=== PATIENT | male | born 1970 | race Caucasian/White ===

== ENCOUNTER 2017-12-27 11:01 | Emergency (ER) | payer OTHER ==
[2017-12-27] MEDS ORDERED: Clindamycin CAP* 150 MG PO ONE (12:16)
[2017-12-27] MEDS ORDERED: Ibuprofen TAB* 600 MG PO ONE (12:16)
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
[2017-12-27 12:41] VITALS: BP 138/90
== END 2017-12-27 12:39 | disposition home or self-care (01) ==
LOC: ED 11:01
DX: K08.89 Other specified disorders of teeth and supporting structures (principal); F17.200 Nicotine dependence, unspecified, uncomplicated
CPT/HCPCS: 99282; A9270-GY

== ENCOUNTER 2018-04-10 19:04 | Emergency (ER) | payer OTHER ==
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
[2018-04-10 21:00] VITALS: BP 125/79
== END 2018-04-10 20:59 | disposition home or self-care (01) ==
LOC: ED 19:04
DX: J06.9 Acute upper respiratory infection, unspecified (principal); J02.9 Acute pharyngitis, unspecified; F17.210 Nicotine dependence, cigarettes, uncomplicated; R68.83 Chills (without fever)
CPT/HCPCS: 87651; 99282